=== PATIENT | male | born 1995 | race Caucasian/White ===

== ENCOUNTER 2018-12-14 23:07 | Emergency (ER) | payer OTHER, MEDICAID ==
[~2018-12-14] VITALS: Ht 170.2 cm; Wt 88.0 kg
[~2018-12-14 23:07] MED LIST: ALBU8.5H8 IH; CYCL-1 PO
[2018-12-14 23:09] VITALS: BP 135/81
[2018-12-14] MEDS ORDERED: albuterol 2.5 mg/0.5ml nebule NEB STA (23:14)
[2018-12-14] MEDS ORDERED: albuterol 2.5 MG/3 ML nebule NEB STA (23:17)
[2018-12-14] MEDS ORDERED: ALB0.5UD IH (23:42)
[2018-12-14] MEDS ORDERED: AZIT250T PO (23:43)
== END 2018-12-15 | disposition home or self-care (01) ==
LOC: ER 23:07
DX: J45.909 Unspecified asthma, uncomplicated (principal)
CPT/HCPCS: 94640; 94760; 99283; J7611

== ENCOUNTER 2020-07-24 15:19 | Emergency (ER) | payer OTHER, MEDICAID ==
[~2020-07-24] VITALS: Ht 170.2 cm; Wt 84.1 kg
[~2020-07-24 15:19] MED LIST changes: +AZIT250T PO
[2020-07-24 15:35] VITALS: BP 134/76
[2020-07-24] MEDS ORDERED: ALBU8HFA PO (16:11)
== END 2020-07-24 16:52 | disposition home or self-care (01) ==
LOC: ER 15:20
DX: J45.901 Unspecified asthma with (acute) exacerbation (principal); R06.02 Shortness of breath; R05 Cough; J02.9 Acute pharyngitis, unspecified; F12.90 Cannabis use, unspecified, uncomplicated; Z98.890 Other specified postprocedural states; Z79.2 Long term (current) use of antibiotics
CPT/HCPCS: 99283